=== PATIENT | female | born 1990 | race African-American/Black ===

== ENCOUNTER 2017-12-03 09:43 | Emergency (ER) | payer SELFPAY ==
[~2017-12-03] VITALS: Ht 170.2 cm; Wt 69.0 kg
[2017-12-03 10:16] LABS: CLARITY URINE CLOUDY (CLEAR); COLOR URINE YELLOW (YELLOW); KETONES URINE NEGATIVE (NEGATIVE); LEUKOCYTE ESTERASE URINE 2+ (NEGATIVE); NITRITE URINE NEGATIVE (NEGATIVE); OCCULT BLOOD URINE 1+ (NEGATIVE); PROTEIN URINE NEGATIVE (NEGATIVE); SPECIFIC GRAVITY URINE 1.026 (1.005-1.030); UROBILINOGEN URINE 0.2 E.U./dL (0.2-1.0)
[2017-12-03 10:29] LABS: BASOPHILS % 1.1 % (0.0-2.0); EOSINOPHILS % 0.7 % (0.0-5.0); HEMOGLOBIN. 13.1 g/dL (12.0-16.0); LYMPHOCYTES % 17.9 % (20.0-50.0); MEAN CORPUSCULAR HEMOGLOBIN 27.9 pg (28.0-32.0); MEAN PLATELET VOLUME 8.4 fl (7.4-10.4); MONOCYTES % 6.7 % (2.0-8.0); NEUTROPHILS % 73.6 % (40.0-76.0); PLATELET 315 x1000/uL (130-400)
[2017-12-03 10:30] LABS: CHLORIDE 104 mEq/L (98-107)
[2017-12-03 10:40] LABS: B-HCG QUANTITATIVE 84 mIU/mL (<3)
[2017-12-03] MEDS ORDERED: SODIUM CHLORIDE 0.9% 1,000 ML IV ONE (10:48)
[2017-12-03] MEDS ORDERED: RHO(D) IMMUNE GLOBULIN 300 MCG/SYR IM ONE (13:00)
[2017-12-03 16:52] VITALS: BP 121/79
== END 2017-12-03 17:12 | disposition home or self-care (01) ==
LOC: ER 10:01
DX: O03.9 Complete or unspecified spontaneous abortion without complication (principal); N30.00 Acute cystitis without hematuria; Z3A.01 Less than 8 weeks gestation of pregnancy
CPT/HCPCS: 36415; 36430; 76801; 76817; 80053; 81003; 81025; 84702; 85025; 86850; 86900; 86901; 87086; 90384; 96360; 96361; 96375; 99285; J7030; Z7610

== ENCOUNTER 2023-10-24 14:29 | Emergency (ER) | payer OTHER ==
[~2023-10-24] VITALS: Ht 170.2 cm; Wt 77.0 kg
[2023-10-24 14:51] VITALS: BP 121/70; PULSE 100; RESP 16; TEMP 98.4; O2SAT 100
[2023-10-24] MEDS ORDERED: OFLO5DRO4 RIGHT EAR (16:15)
== END 2023-10-24 16:26 | disposition home or self-care (01) ==
LOC: ER 14:29
DX: H60.91 Unspecified otitis externa, right ear (principal)
CPT/HCPCS: 99283

== ENCOUNTER 2023-10-26 05:41 | Emergency (ER) | payer OTHER ==
[~2023-10-26] VITALS: Ht 175.3 cm; Wt 77.0 kg
[~2023-10-26 05:41] MED LIST: OFLO5DRO4 RIGHT EAR
[2023-10-26 05:54] VITALS: O2SAT 95
[2023-10-26] MEDS ORDERED: AMOX1TAB16 MT (06:45)
[2023-10-26 06:58] VITALS: BP 115/69; PULSE 98; RESP 12; TEMP 99.7
== END 2023-10-26 06:56 | disposition home or self-care (01) ==
LOC: ER 06:18
DX: H66.91 Otitis media, unspecified, right ear (principal)
CPT/HCPCS: 99283

== ENCOUNTER 2023-11-02 10:52 | Emergency (ER) | payer OTHER ==
[~2023-11-02] VITALS: Ht 170.2 cm; Wt 77.0 kg
[~2023-11-02 10:52] MED LIST changes: +AMOX1TAB16 MT
[2023-11-02 10:53] VITALS: BP 126/74; PULSE 94; RESP 16; TEMP 98.8; O2SAT 100
[2023-11-02 11:36] LABS: BASOPHILS % 1.1 % (0.0-2.0); EOSINOPHILS % 3.5 % (0.0-5.0); HEMATOCRIT. 36.8 % (36.0-48.0); HEMOGLOBIN. 12.8 g/dL (12.0-16.0); LYMPHOCYTES % 31.2 % (20.0-50.0); MEAN CORPUSCULAR HGB CONC 34.7 g/dL (31.0-37.0); MEAN CORPUSCULAR VOLUME 86.6 fL (81.0-99.0); MEAN PLATELET VOLUME 8.2 fl (7.4-10.4); MONOCYTES % 6.3 % (2.0-8.0); NEUTROPHILS % 57.9 % (40.0-76.0); PLATELET 343 x1000/uL (130-400); RED BLOOD CELL COUNT 4.25 mill/uL (4.2-5.4); WHITE BLOOD COUNT 6.4 x1000/uL (4.5-11.0)
[2023-11-02 11:48] LABS: CARBON DIOXIDE 25 mEq/L (21-32); CHLORIDE 105 mEq/L (98-107); POTASSIUM 4.2 mEq/L (3.5-5.1); SODIUM 137 mEq/L (136-145)
[2023-11-02 11:49] LABS: ALANINE AMINOTRANSFERASE 17 IU/L (10-49); ALBUMIN 4.8 g/dL (3.2-4.8); ASPARTATE AMINOTRANSFERASE 20 IU/L (<34); BILIRUBIN TOTAL 0.4 mg/dL (0.1-1.0); CALCIUM 9.2 mg/dL (8.7-10.4); CREATININE 0.9 mg/dL (0.6-1.0); GLUCOSE 94 mg/dL (70-105); PROTEIN TOTAL 7.8 g/dL (6.0-8.3); UREA NITROGEN BLOOD 10 mg/dL (9-23)
[2023-11-02 12:00] LABS: CLARITY URINE CLOUDY (CLEAR); COLOR URINE RED (YELLOW); GLUCOSE URINE NEGATIVE (NEGATIVE); KETONES URINE NEGATIVE (NEGATIVE); LEUKOCYTE ESTERASE URINE 1+ (NEGATIVE); NITRITE URINE NEGATIVE (NEGATIVE); OCCULT BLOOD URINE 3+ (NEGATIVE); PROTEIN URINE TRACE (NEGATIVE); SPECIFIC GRAVITY URINE 1.019 (1.005-1.030)
[2023-11-02 12:03] LABS: HCG SCREEN NEGATIVE
[2023-11-02 12:45] LABS: RBC URINE TNTC /hpf (0-2); SQUAMOUS EPITHELIAL CELL URINE 1+ /lpf (RARE/1+)
[2023-11-02 12:47] LABS: BACTERIA URINE NONE SEEN; WBC URINE NONE SEEN /hpf (0-2)
== END 2023-11-02 16:32 | disposition home or self-care (01) ==
LOC: ER 10:52
DX: R31.9 Hematuria, unspecified (principal)
CPT/HCPCS: 36415; 74176; 80053; 81003; 81025; 84703; 85025; 99284

== ENCOUNTER 2024-06-21 09:11 | Emergency (ER) | payer OTHER ==
[~2024-06-21] VITALS: Ht 170.2 cm; Wt 79.0 kg
[2024-06-21 09:13] VITALS: O2SAT 100
[2024-06-21 09:15] VITALS: BP 132/65; PULSE 82; RESP 18; TEMP 98.2; O2SAT 100
[2024-06-21] MEDS ORDERED: CYCLOBENZAPRINE 10MG TABLET PO ONE (10:00)
[2024-06-21] MEDS ORDERED: IBUP-2029 MT (12:13)
== END 2024-06-21 14:47 | disposition home or self-care (01) ==
LOC: ER 09:11
DX: S86.891A Other injury of other muscle(s) and tendon(s) at lower leg level, right leg, initial encounter (principal); X58.XXXA Exposure to other specified factors, initial encounter; Y93.89 Activity, other specified; Y92.89 Other specified places as the place of occurrence of the external cause; Y99.8 Other external cause status
CPT/HCPCS: 73590; 99283